=== PATIENT | female | born 1970 | race American Indian/Alaskan Native ===

== ENCOUNTER 2021-04-06 09:22 | Day surgery (SDC) | payer OTHER ==
--- NOTE | 2021-04-04 10:16 | Anesthesia Consultation ---
Anesthesia Consult and Med Hx Date of service: 04/06/21 - Airway Anesthetic Teeth Evaluation: Good ROM Head & Neck: Adequate Mental/Hyoid Distance: Adequate Mallampati Class: Class III Intubation Access Assessment: Possibly Difficult - Pulmonary Exam CTA: Yes - Cardiac Exam Cardiac Exam: RRR - Pre-Operative Health Status ASA Pre-Surgery Classification: ASA3 Proposed Anesthetic Plan: General - Pulmonary Hx Smoking: No Hx Respiratory Symptoms: Yes (occasional cough 2/2 bronchitis; rare albuterol use) - Cardiovascular System Hx Hypertension: No Hx Heart Attack/AMI: No Hx Percutaneous Transluminal Coronary Angioplasty (PTCA): No - Central Nervous System Hx Neuromuscular Disorder: Yes (reflex sympathetic dystrophy of LUE; hydrocodone 10mg qHS) Hx Seizures: Yes (remote hx 2/2 brain aneurysm; no AEDs) CVA: No (remote hx right sided brain aneurysm s/p clipping) Hx Psychiatric Problems: No - Endocrine Hx Renal Disease: No Hx Liver Disease: No Hx Insulin Dependent Diabetes: No Hx Non-Insulin Dependent Diabetes: No Hx Thyroid Disease: No - Hematic Hx Anemia: Yes (PO iron, no hx transfusion) - Additional Comments Anesthesia Medical History Comments: No hx anesthetic complications.
[2021-04-04 10:30] LABS: Hematocrit 22.6 % (30.3-42.9); Hemoglobin 6.6 gm/dl (10.1-14.3); Mean Corpuscular HGB Conc 29 % (30-34); Mean Corpuscular Volume 70 fl (79-97); Platelet Count 444 K/mm3 (140-440); Red Blood Count 3.23 M/mm3 (3.65-5.03); Red Cell Distribution Width 24.2 % (13.2-15.2)
--- NOTE | 2021-04-06 07:25 | Short Stay Summary ---
Short Stay Documentation Date of service: 04/06/21 Narrative H&P: 50-year-old -0-1-1 with a history of dysfunctional uterine bleeding. The patient has had significant menorrhagia that has contributed to her severe iron deficiency anemia. She has failed medical management. - History Principal diagnosis: Dysfunctional uterine bleeding and anemia Past Medical History: anemia, other (Aneurysm; anemia) Past Surgical History: cholecystectomy, Other (Neurosurgery; reduction mammoplasty) Social history: - Allergies and Medications Current Medications: Allergies No Known Allergies Allergy (Unverified 04/01/21 17:34) Home Medications Medication Instructions Recorded Confirmed Last Taken Type Albuterol Sulfate [Proventil Hfa] 2 puff IH Q4H PRN 04/01/21 04/01/21 Unknown History Ferrous Sulfate [Iron 325 MG] 325 mg PO DAILY 04/01/21 04/01/21 Unknown History Hydrocodone Bitartrate [Zohydro ER] 10 mg PO PRN PRN 04/01/21 04/01/21 Unknown History Active Medications Acetaminophen (Acetaminophen 500 Mg Tab) 1,000 mg PO PREOP MARCE Lactated Ringer's (Lactated Ringers) 1,000 mls @ 100 mls/hr IV DIRECT MARCE Stop: 04/06/21 23:59 Sodium Chloride (Nacl 0.9% 1000 Ml) 1,000 mls @ 100 mls/hr IV DIRECT MARCE Stop: 04/06/21 23:59 Midazolam HCl (Midazolam 2 Mg/2 Ml Inj) 2 mg IV PREOP NR Stop: 04/06/21 23:00 Scopolamine (Scopolamine Transdermal Patch 72 Hr) 1 each TD PREOP NR Stop: 04/06/21 23:00 - Physical exam General appearance: no acute distress Integumentary: no rash HEENT: Atraumatic Lungs: Clear to auscultation Breasts: deferred Heart: Regular rate Gastrointestinal: normal Female Genitourinary: deferred Rectal Exam: deferred Extremities: no ischemia - Brief post op/procedure progress note Date of procedure: 04/06/21 Pre-op diagnosis: Dysfunctional uterine bleeding; leiomyoma Post-op diagnosis: same Procedure: Hysteroscopy Myomectomy with MyoSure Endometrial ablation with NovaSure Anesthesia: GETA Surgeon: MILA PEREZ Estimated blood loss: minimal Pathology: list (Leiomyoma) Specimen disposition: to lab Condition: stable - Hospital course Hospital course: The patient was admitted the day of surgery underwent a hysteroscopic resection of a leiomyoma and an endometrial ablation. Please see operative note for details of surgery. Her postoperative course was uneventful. - Disposition Condition at discharge: Good Disposition: 01 HOME / SELF CARE / HOMELESS Short Stay Discharge Plan Activity: other (Pelvic rest for 1 week) Diet: regular Additional Instructions: Follow-up with Dr. Perez in 2 to 4 weeks Pelvic rest for 1 week Prescriptions: Ibuprofen [Motrin] 800 mg PO Q8HR PRN #30 tablet PRN Reason: Pain , Severe (7-10) HYDROcodone/APAP 5-325 [[place] 5/325] 1 each PO Q6HR PRN #15 tablet PRN Reason: Pain
[~2021-04-06 09:22] MED LIST: ACETAMINOPHEN 500 MG TAB PO SCH; LACTATED RINGERS 1,000 ML IV SCH; MIDAZOLAM 2 MG/2 ML INJ IV NR; SCOPOLAMINE TRANSDERMAL PATCH 72 HR TD NR; SODIUM CHLORIDE 0.9% 1000 ML 1,000 ML IV SCH
--- NOTE | 2021-04-06 09:35 | Anesthesia Day of Surgery ---
Anesthesia Day of Surgery - Day of Surgery Patient Examined: Yes Patient H&P Reviewed: Yes Patient is NPO: Yes
[2021-04-06] MEDS ORDERED: oxyCODONE /ACETAMINOPHEN 5-325MG TAB PO PRN (09:36)
[2021-04-06] MEDS ORDERED: ONDANSETRON 4 MG/2 ML INJ IV PRN (10:00)
[2021-04-06] MEDS ORDERED: HYDROmorphone 1 MG/1 ML INJ IV PRN (10:00)
[2021-04-06] MEDS ORDERED: propofoL 200 MG/20 ML VIAL IV ONE (10:14)
[2021-04-06] MEDS ORDERED: HYDROmorphone 1 MG/1 ML INJ ONE (10:14)
[2021-04-06] MEDS ORDERED: LIDOCAINE MPF (2%) 20 MG/1 ML VIAL 5 ML ONE (10:15)
[2021-04-06] MEDS ORDERED: fentaNYL 100 MCG/2 ML INJ IV PRN (10:31)
[2021-04-06] MEDS ORDERED: SILVER NITRATE APPLICATOR 1 EA TP ONE (10:35)
[2021-04-06] MEDS ORDERED: ONDANSETRON 4 MG/2 ML INJ ONE (11:11)
[2021-04-06] MEDS ORDERED: dexAMETHasone 20 MG/5 ML VIAL ONE (11:11)
[2021-04-06] MEDS ORDERED: SODIUM CHLORIDE 0.9% IRRIG SOLN 2000 ML IR ONE (11:20)
[2021-04-06] MEDS ORDERED: KETOROLAC 30 MG/1 ML INJ ONE (11:50)
--- NOTE | 2021-04-06 11:56 | Operative Report ---
Operative Report Operative Report: Date of procedure: April 06, 2021 Pre-operative diagnosis: Dysfunctional uterine bleeding; leiomyoma Post-operative diagnosis: Same as above Procedure name(s): Hysteroscopy; hysteroscopic myomectomy with MyoSure; endometrial ablation via NovaSure Surgeon: Dione Vogel M.D. Cycle Liaison: None Anesthesia: General tracheal anesthesia Findings submucosal leiomyoma on the anterior aspect of the endometrial cavity Indication: 50-year-old -0-1-1 with a history of dysfunctional uterine bleeding that subsequently contributed to her severe iron deficiency anemia. The patient was transfused 1 unit of packed red blood cells preoperatively. Procedure The patient was taken to the operating room and given general tracheal anesthesia without complication. The patient was prepped and draped in a normal sterile fashion. A bivalve speculum was placed in the patient's vagina single- tooth tenaculums placed on the anterior lip of the cervix. The cervical os was dilated with graduated dilators. A uterine sound was inserted. The hysteroscope was then placed. Insufflation of the uterine cavity was performed with normal saline. Gen. survey of the uterine cavity revealed submucosal leiomyoma on the anterior aspect of the uterine cavity. The MyoSure device was inserted through the hysteroscope with resection of the submucosal leiomyoma. The hysteroscope was then removed. The NovaSure device was then inserted. The endometrial length was 5.5 and the uterine width was 3.5. The device was engaged and it passed the surveillance of the uterine cavity. The NovaSure device was then deployed with a energy of 106 W that lasted for 1 minute 47 seconds. The NovaSure device was then removed. The hysteroscope was again reinserted. There was evidence of charring of the endometrial surface. The remainder of the vaginal instruments were then removed atraumatically. The patient was then successfully extubated taken to the recovery room. All sponge laps and needle counts were correct 2.
[2021-04-06] MEDS ORDERED: SODIUM CHLORIDE 0.9% 500 ML 500 ML ONE (12:17)
--- NOTE | 2021-04-06 14:04 | Post Anesthesia Evaluation ---
- Post Anesthesia Evaluation Patient Participated: Yes Airway Patent: Yes Stable Respiratory Function: Yes Nausea/Vomiting: No Temp > 96.8F: Yes Pain Manageable: Yes Adequeate Hydration: Yes Anesthesia Complications: No
[2021-04-06 14:23] VITALS: BP 128/78
== END 2021-04-06 15:05 | disposition home or self-care (01) ==
LOC: OR 09:22
PROVIDERS: ATTEND Obstetrics & Gynecology
DX: N93.8 Other specified abnormal uterine and vaginal bleeding (principal); D25.9 Leiomyoma of uterus, unspecified; Z79.899 Other long term (current) drug therapy; Z90.49 Acquired absence of other specified parts of digestive tract; Z98.890 Other specified postprocedural states; Z88.8 Allergy status to other drugs, medicaments and biological substances; Z20.822 Contact with and (suspected) exposure to COVID-19
CPT/HCPCS: 36415; 58561; 58563; 84703; 85027; 86850; 86900; 86901; 86920; 88305; A4217; C1782; J1100; J1170; J1885; J2250; J2405; J2704; J3010; J7040; J7120; P9016; U0003